=== PATIENT | female | born 1940 | race Caucasian/White ===

== ENCOUNTER 2016-07-02 11:48 | Emergency (ER) | payer MEDICARE, OTHER ==
[~2016-07-02] VITALS: Ht 165.1 cm; Wt 83.9 kg
--- NOTE | 2016-07-02 12:20 | Emergency Room Report ---
History of Present Illness Time Seen by [id number] Presenting Problem in Triage Pt arrived:Walked Presenting Problem:DIARRHEA X5 DAYS , PT TOOK IMMODIUM IT STOPPED THE SYMPTOMS STARTED BACK ON SATURDAY Onset of symptoms date/time:06/28/1602/03/700 or onset unknown for: Treatment Prior to Arrival: IMMODIUM WATCHSTANDER Provided by:SELF Sepsis Risk Assessment: Temp: 98. B/P: 131/70 MAP: 90 Pulse: 68 Resp: 20 Recent fever? N Clinical Suspician of Infection? N Mental Status: 1 - Regular (Normal Baseline) Sepsis Risk:Low Sepsis Risk Have you (or family members/close friends) recently traveled outside the [place]? N If Yes, where/when: Have you had exposure to infectious disease within the past month? N TB? Other? Specify: Source patient, RN notes reviewed, family, RN/MD Exam Limitations no limitations Comment This is a 76-year-old female patient arriving to the emergency room for evaluation of her diarrhea that started earlier this morning. She is complaining with some vague abdominal cramping as well, but denies any vomiting, nausea, fever. She has a separate episodes of diarrhea approximately 5 days ago, last Saturday, which was self-limited, and stopped after just several hours of watery stools. Patient describes similar episode today, with her having profuse diarrhea a few times is morning and calling her PCP who advised her to "presented to the closest emergency room" for "evaluation of possible dehydration". Patient was apparently instructed to not take any Imodium. ALLERGIES Coded Allergies: No Known Allergies (07/02/16) History Medical History General CAD? No Angina: No MN: No Hypertension? No Hyperlipidemia? Yes CHF? No DVT? No PE? No COPD? No Asthma? No Anemia? No GERD? No Gastric ulcers? No GI Bleed? No Hernia? No Thyroid Problems? No Hypothyroidism? No CVA? No Seizures? No Diabetes? No Renal Insuffiency? No End Stage Renal Disease? No UTI? No Stones? No BPH? No GB Disease: No Nephritic Syndrome? No Asplenia? No Hepatitis? No Sickle Cell Disease? No Arthritis? Yes Migraines? No Cataracts? No Glaucoma? No MRSA? No HIV? No TB? No Anxiety? No Depression? No Cancer? No Site: N Immunization Hx DT/Tetanus Unknown Surgical Hx Previous Surgery?Y L KNEE REPLACEMENT Social History Smoking Hx Smoker: Never Smoker Tobacco: No Alcohol Alcohol: No Review of Systems All Other Systems Reviewed and Negative Gastrointestinal see HPI, abdominal pain, diarrhea Physical Exam Vital Signs Vital Signs Date Time Temp Pulse Resp B/P Pulse O2 O2 Flow FiO2 Ox Delivery Rate 07/02 1505 65 18 152/74 98 07/02 1503 65 18 152/74 98 07/02 1357 65 70 155/69 98 07/02 1308 69 20 149/79 99 07/02 1154 98.0 68 20 131/70 96 General Appearance normal appearance, WD/WN, mild distress Respiratory Status Yes: trachea midline, chest symmetrical, non tender chest. No: respiratory distress. Lung Sounds bilateral: normal breath sounds, lungs clear. Cardiovascular normal exam, regular rate/rhythm, no peripheral edema, no gallop, no JVD, no murmur, no rub, normal peripheral pulses Gastrointestinal normal bowel sounds, soft, no organomegaly, tenderness (diffuse abdominal tenderness) Extremities non-tender, normal range of motion, normal inspection Neurologic alert, [employer] school industrial [employer] II-XII nml as tested, normal exam, oriented x 3 Mental status normal mood/affect Skin intact, normal color, warm/dry Medical Decision Making LABS/Meds/Orders Pt receiving controlled substance in ED? No Comment Upon reevaluation patient appears medically stable, in no acute distress, with no further diarrhea. Advised the patient to take Imodium, but since her PCP advised her the contrary patient appears unconvinced of this recommendation. She was unfortunately unable to collect a stool sample while in the emergency room so I gave for asleep for diarrhea panel and the stool container in order to collect a sample at home and bring it back to outpatient lab. Results of such test will be forwarded to Dr. Neil Aleixs in [place]. Most importantly she has gallbladder/liver lesion seen on the CAT scan which radiologist, Dr. Ronen Sinha, recommence to have a follow-up study, consistent with her gallbladder/liver ultrasound. Patient denies any complaints in the RIGHT upper quadrant of her abdomen whatsoever. She understands the importance of this additional study which will yield more than likely another diagnosis. Results/Orders Laboratory Tests 07/02/16 1230: Sodium 141, Potassium 4.0, Chloride 104, Carbon Dioxide 29, BUN 9, Creatinine 0.7, Estimated Creat Clear 88, Estimated GFR (MDRD) 81, Glucose 85, Calcium 9.8, Total Bilirubin 0.5, AST 17, ALT 28, Alkaline Phosphatase 92, Total Protein 7.8, Albumin 3.8, Globulin 4.0 H, Albumin/Globulin Ratio 1.0 L, WBC 8.3, RBC 3.85 L, Hgb 11.4 L, Hct 34.4 L, MCV 89.5, RDW 12.9, Plt Count 335, MPV 6.0 L, Gran % 75.6, Gran # 6.3, Lymphocytes % 18.7, Monocytes % 4.0, Eosinophils % 1.4, Basophils % 0.2, Lymphocytes # 1.6, Monocytes # 0.3, Eosinophils # 0.1, Basophils # 0.0, PUBS MCHC 33.2, MCH 29.7, Urine Color YELLOW, Urine Appearance SL CLOUDY, Urine pH 6.0, Ur Specific [place] <= 1.005, Urine Protein NEGATIVE, Urine Ketones NEGATIVE, Urine Blood TRACE-INTACT, Urine Nitrate POSITIVE H, Urine Bilirubin NEGATIVE, Urine Urobilinogen 0.2, Ur Leukocyte Esterase 2+ H, Urine RBC OCC, Urine WBC 10-20, Ur Squamous Epith Cells OCC, Urine Renal Cells OCC, Urine Bacteria 4+, Urine Glucose NEGATIVE Current Medication Orders Sig/Mimi Start time Last Medication Dose Route Stop Time Status Admin Iopamidol 75 ML ONCE ONE 07/02 1445 DC 07/02 IV 07/02 1446 1442 Sodium Chloride 10 ML PRN PRN 07/02 1445 DCD 07/02 IV 07/02 1612 1442 Sodium Chloride 1,000 ML .STK-MED ONE 07/02 1218 DC IV Sodium Chloride 10 ML PRN PRN 07/02 1215 DCD IV 07/03 1213 Sodium Chloride 1,000 ML .Q1H1M 07/02 1215 DC 07/02 IV 07/02 1315 1227 Sodium Chloride 10 ML PRN PRN 07/02 1215 DCD IV 07/03 1214 Orders Procedure Date/time Status DIET-NOTHING BY MOUTH 07/02 D Active DIARRHEA PANEL, PCR 07/02 1432 Active CULTURE, URINE 07/[address] ABD/PELVIS REQ 07/02 1213 Complete IV SALINE LOCK 07/02 1214 Active URINALYSIS/COMPLETE 07/02 1213 Complete CBC WITH AUTO DIFF 02/13 1214 Complete CHEM 12 PROFILE 07/02 1214 Complete XRAY/CT/US XRAY/CT/US CT abdomen, pelvis CT interpretation by discussed w/radiologist CT Results please see the radiologist's report - abnormality in the fundus of the gallbladder versus hepatic lesion, also consistent with enterocolitis. Departure Departure Time of Disposition 1446 Disposition DC Home or Self Care(routine) Clinical Impression Primary Impression: Diarrhea Qualifiers: Diarrhea type: unspecified type Qualified Code: R19.7 - Diarrhea, unspecified Secondary Impressions: Gallstone Qualifiers: Cholecystitis presence: without cholecystitis Biliary obstruction: without biliary obstruction Qualified Code: K80.20 - Calculus of gallbladder without cholecystitis without obstruction UTI (urinary tract infection) Qualifiers: Urinary tract infection type: acute cystitis Hematuria presence: without hematuria Qualified Code: N30.00 - Acute cystitis without hematuria Condition STABLE Referrals NEIL ALEXIS S: Today after leaving ER Patient Instructions DI for Gallstones, DI for Urinary Tract Infection (UTI), Diarrhea Additional Instructions Please drink plenty of fluids, take the antibiotics prescribed as directed, return the stool sample to the outpatient laboratory. Results will be submitted to Dr Neil Alexis. Please follow up with Dr Alexis regarding your: 1) stool results, as well as 2) the abnormalities seen on the CT scan film (hepatic cyst versus gallstone). This follow-up appointment is very important, as our radiologist has recommended further studies with a liver/gallbladder ultrasound in order to further evaluate this lesion in more detail. Once diagnosis is made, necessary therapy will be determined at that time as well. Discharge Counseling Counseled pt/family regarding diagnosis, test results, medications/RX, home care, follow up needs Comment Please drink plenty of fluids, take the antibiotics prescribed as directed, return the stool sample to the outpatient laboratory. Results will be submitted to Dr Neil Alexis. Please follow up with Dr Alexis regarding your: 1) stool results, as well as 2) the abnormalities seen on the CT scan film (hepatic cyst versus gallstone). This follow-up appointment is very important, as our radiologist has recommended further studies with a liver/gallbladder ultrasound in order to further evaluate this lesion in more detail. Once diagnosis is made, necessary therapy will be determined at that time as well. Prescriptions Current Visit Scripts Ciprofloxacin HCl (Cipro 500MG TAB) 500 MG PO BID #20 TAB ED Critical Care Critical Care No at [id number]
[2016-07-02 12:38] LABS: HEMOGLOBIN 11.4 g/dL (12.2-16.2); LYMPH # 1.6 K/mm3 (0.7-4.5); LYMPH % 18.7 % (10-50.0)
[2016-07-02 12:39] LABS: URINE BILIRUBIN - DIPSTICK NEGATIVE (NEG); URINE BLOOD TRACE-INTACT (NEG)
[2016-07-02 12:48] LABS: URINE RENAL CELLS OCC #/HPF; URINE SQUAMOUS CELLS OCC #/hpf (0-5)
--- NOTE | 2016-07-02 14:15 | RADIOLOGY REPORT PS360 ---
CT ABD PELVIS W/ CONTRAST CLINICAL INDICATION: Abdominal pain with nausea and diarrhea ABD PAIN ORDERING PHYSICIAN: Elier Mathews MD PATIENT AGE: 76 years COMPARISON: None TECHNIQUE: Axial images obtained with sagittal and coronal reformats. PROCEDURE: Oral Contrast: None IV Contrast: 75 mL's of Isovue-370 . FINDINGS: No acute finding in the lower chest. There is a complex density in lateral aspect of the lateral segment of the left hepatic lobe measuring 1.6 cm. This is immediately adjacent to the fundus of the gallbladder. This does show some increased density centrally and fluid density peripherally. While this appears to be separate from the fundus of the gallbladder and could actually be part of the fundus of the gallbladder with a stone with a fold within the gallbladder. A liver lesion is an additional consideration. Ultrasound may be of further value. There is some focal fatty liver infiltration at the falciform ligament region. There is some mild prominence of the intrahepatic biliary radicles. The remaining gallbladder has an unremarkable appearance. The spleen, adrenal glands, pancreas, and kidneys are unremarkable. no intestinal obstruction or free air. Small umbilical hernia containing fat. No evidence of appendicitis or diverticulitis. There is mild thickening versus nondistention of the colon and small bowel in the right lower quadrant. Enterocolitis is considered. No free air or abnormal fluid collections. IMPRESSION: 1. Complex lesion adjacent to the fundus of the gallbladder as described above possibly related to a stone within a septated portion of the gallbladder versus a true hepatic lesion. Suggest ultrasound for further evaluation. 2. There is mild thickening of the entire colon versus nondistention as well as mild thickening of some loops of small bowel in the pelvic region. Enterocolitis considered. No intestinal obstruction or free air.
[2016-07-02] MEDS ORDERED: CIPRO 500MG TA500 MG PO (14:55)
[2016-07-02 15:05] VITALS: BP 152/74
== END 2016-07-02 15:05 | disposition home or self-care (01) ==
LOC: ER 11:48
PROVIDERS: Emergency Medicine
DX: R19.7 Diarrhea, unspecified (principal); K80.20 Calculus of gallbladder without cholecystitis without obstruction; N30.00 Acute cystitis without hematuria; E78.5 Hyperlipidemia, unspecified; M19.90 Unspecified osteoarthritis, unspecified site
CPT/HCPCS: Q9967

== ENCOUNTER → 2016-07-07 | Outpatient (CLI) | payer MEDICARE, OTHER ==
[~2016-07-07] MED LIST: CIPRO 500MG TA500 MG PO
[2016-07-07 10:40] LABS: AEROMONAS NOT DETECTED (NOT DETECTE); ASTROVIRUS NOT DETECTED (NOT DETECTE); CYCLOSPORA CAYETANENSIS NOT DETECTED (NOT DETECTE); E COLI O157 NOT DETECTED (NOT DETECTE); ENTEROAGGREGATIVE E COLI NOT DETECTED (NOT DETECTE); ENTEROPATHOGENIC E COLI NOT DETECTED (NOT DETECTE); ENTEROTOXIGENIC E COLI NOT DETECTED (NOT DETECTE); NOROVIRUS NOT DETECTED (NOT DETECTE); SHIGA-LIKE TOXIN PROD. E COLI NOT DETECTED (NOT DETECTE); SHIGELLA/ENTEROINVASIVE E COLI NOT DETECTED (NOT DETECTE); VIBRIO CHOLERAE NOT DETECTED (NOT DETECTE)
[2016-07-07 16:46] LABS: SAPOVIRUS DETECTED (NOT DETECTE)
== END ==
LOC: LAB 10:39
PROVIDERS: Internal Medicine
DX: R19.7 Diarrhea, unspecified (principal)